=== PATIENT | female | born 1945 | race Caucasian/White ===

== ENCOUNTER → 2018-10-04 | Outpatient (CLI) | payer OTHER ==
--- NOTE | 2018-10-04 16:49 | Diagnostic Imaging Report ---
INDICATION: Chronic back pain. TIME OF EXAM: 01:58 p.m. FINDINGS: Left convexity lumbar scoliotic curvature is noted. There is normal lordotic curvature. Minimal anterolisthesis of L4 on L5 is noted. There is minimal retrolisthesis of L1 on L2. Vertebral body heights are maintained. No acute compression fracture is identified. Multilevel degenerative disc disease is noted with variable disc space narrowing and marginal spurring. This is greatest at the L1-L2 as well as L4-L5 levels. There is vacuum disc phenomenon at these levels. Multilevel facet arthropathy is noted. There is no spondylolysis. IMPRESSION: Lumbar spondylosis, as described. No acute bony abnormality is detected. Dictated by: Dictated on workstation # [id number]
--- NOTE | 2018-10-04 17:35 | Diagnostic Imaging Report ---
INDICATION: Chronic hip pain. TIME OF EXAM: 1:57 p.m. Two views of the left hip are obtained. FINDINGS: Joint space is well maintained. Femoroacetabular alignment is normal. Femoral head and neck are intact. No fractures are seen. Rami are intact. IMPRESSION: No acute bony abnormality is detected. Dictated by: Dictated on workstation # [id number]
== END ==
LOC: RAD FS 13:47
PROVIDERS: ATTEND Nurse Practitioner
DX: G89.29 Other chronic pain (principal); M25.552 Pain in left hip; M47.816 Spondylosis without myelopathy or radiculopathy, lumbar region
CPT/HCPCS: 72110; 73502

== ENCOUNTER → 2018-10-25 | Outpatient (CLI) | payer OTHER ==
--- NOTE | 2018-10-25 16:37 | Diagnostic Imaging Report ---
PROCEDURE: MRI lumbar spine. TECHNIQUE: Multiplanar, multisequence MRI of the lumbar spine was performed without contrast. INDICATION: Back pain and radiculopathy. FINDINGS: There is some left convexity degenerative lumbar rotoscoliosis. The vertebral body heights are well-maintained. There is no spondylolysis or spondylolisthesis. No fractures are identified. Conus medullaris is seen at L1 and is normal in appearance. The T12-L1 disc demonstrates some minimal annular bulging. There is mild facet disease at this level. There is however no significant neural or spinal stenosis. At L1-2, there is loss of disc height and signal intensity. There is broad-based annular bulging as well as some Modic changes in the endplates. There is facet disease and thickening of the ligamentum flavum. There is moderate spinal stenosis with moderate left and xdtn-es-zqjanmsa right neural foraminal encroachment. At L2-3, there is loss of disc height and signal intensity. There is annular bulging, facet disease and thickening of the ligamentum flavum. There is moderate spinal stenosis and moderate bilateral neural foraminal encroachment. At L3-4, there is loss of disc height and signal intensity. There is broad-based annular bulging, facet disease and thickening of the ligamentum flavum. There is moderate to severe spinal stenosis with encroachment upon the lateral recess bilaterally right greater than left. There is moderate bilateral neural foraminal encroachment. At L4-5, there is broad-based annular bulging, facet disease and thickening of the ligamentum flavum. There is moderately severe spinal stenosis with encroachment upon the lateral recess bilaterally, right greater than left. There is moderately severe right and mild to moderate left neural foraminal encroachment. At L5-S1, there is mild annular bulging and facet disease. There is mild spinal stenosis with pxtv-xe-lpgzcwpm bilateral neural foraminal encroachment. Abdominal aorta is nonaneurysmal. There is a right renal cyst. There are no other focal soft tissue abnormalities. IMPRESSION: Diffuse lumbar spondylosis and multilevel degenerative disc disease as detailed above. Dictated by: Dictated on workstation # [id number]
== END ==
LOC: RAD 15:29
PROVIDERS: ATTEND Nurse Practitioner
DX: M51.17 Intervertebral disc disorders with radiculopathy, lumbosacral region (principal); M47.25 Other spondylosis with radiculopathy, thoracolumbar region; M41.86 Other forms of scoliosis, lumbar region; M48.07 Spinal stenosis, lumbosacral region
CPT/HCPCS: 72148

== ENCOUNTER → 2019-11-08 | Outpatient (CLI) | payer OTHER ==
--- NOTE | 2019-11-08 10:33 | Diagnostic Imaging Report ---
PROCEDURE: MRI lumbar spine. TECHNIQUE: Multiplanar, multisequence MRI of the lumbar spine was performed without contrast. INDICATION: Back pain. COMPARISON: 10/25/2018. FINDINGS: There is moderately severe left convexity degenerative lumbar rotoscoliosis. The vertebral body heights are well-maintained. There is no spondylolysis or spondylolisthesis. No fractures are identified. The conus medullaris is seen at L1 and is normal in appearance. At T12-L1, there is no spinal or neuroforaminal encroachment. At L1-L2, there is loss of disc height and signal intensity. There are Modic changes in the endplates. There is facet disease and thickening of the ligamentum flavum. There is mild spinal stenosis. There is moderate left and wetz-gt-iretqjyd right neuroforaminal encroachment. At L2-L3, there is loss of disc height and signal intensity. There is facet disease and thickening of the ligamentum flavum. There are Modic changes in the endplates. There is moderate spinal stenosis with encroachment upon the lateral recess bilaterally. There is moderate bilateral neuroforaminal encroachment. At L3-L4, there is loss of disc height and signal intensity. There are Modic changes in the endplates. There is broad-based annular bulging, facet disease, and thickening of the ligamentum flavum. There is moderately severe spinal stenosis with encroachment upon the lateral recess bilaterally. There is moderately severe right and mild to moderate left neuroforaminal encroachment. At L4-L5, there is annular bulging facet disease and thickening of the ligamentum flavum. There is moderately severe spinal stenosis with encroachment upon the lateral recess bilaterally. There is moderately severe right and mild to moderate left neuroforaminal encroachment. At L5-S1, there is anular bulging and facet disease. There is slight effacement of the ventral thecal sac. There is encroachment on the lateral recess bilaterally, left greater than right. There is mild right and moderate to severe left neuroforaminal encroachment. The aorta is nonaneurysmal. There is a cyst in the right kidney. There are no other focal soft tissue abnormalities. IMPRESSION: Diffuse lumbar spondylosis and multilevel degenerative disc disease as detailed above. Dictated by: Dictated on workstation # [id number]
--- NOTE | 2019-11-08 10:34 | Diagnostic Imaging Report ---
INDICATION: Chronic back pain. Five views were obtained. FINDINGS: There is some left convexity degenerative lumbar rotoscoliosis. The vertebral body heights are well-maintained. There is multilevel degenerative disc disease. There is no obvious subluxation with flexion or extension. IMPRESSION: Diffuse lumbar spondylosis and multilevel degenerative disc disease as described. Dictated by: Dictated on workstation # [id number]
--- NOTE | 2019-11-08 10:37 | Diagnostic Imaging Report ---
INDICATION: Scoliosis. FINDINGS: There is marked S-type scoliosis. This measures approximately 37 degrees right convexity lower thoracic spine. There is compensatory left convexity lumbar scoliosis. Vertebral body heights appear to be well-maintained. There is diffuse spondylosis and multilevel degenerative disc disease. IMPRESSION: Severe S-type scoliosis as described. Dictated by: Dictated on workstation # [id number]
== END ==
LOC: RAD 09:17
PROVIDERS: ATTEND Student in an Organized Health Care Education/Training Program
DX: M47.26 Other spondylosis with radiculopathy, lumbar region (principal); M51.17 Intervertebral disc disorders with radiculopathy, lumbosacral region; N28.1 Cyst of kidney, acquired; M41.86 Other forms of scoliosis, lumbar region
CPT/HCPCS: 72082; 72110; 72148

== ENCOUNTER → 2021-01-14 | Outpatient (CLI) | payer OTHER ==
--- NOTE | 2021-01-14 13:43 | Diagnostic Imaging Report ---
INDICATION: SCOLIOSIS. TECHNIQUE: AP views thoracic and lumbar spine, 11:38 AM. CORRELATION STUDY: 11/08/2019 FINDINGS: Rather significant thoracolumbar sclerotic curvature is present. There is approximately 43 degrees of rightward curvature of the thoracic spine with 32 degrees of leftward curvature lower lumbar spine. There is also additional slight lateral subluxation of L4 in regards to L5. Marked asymmetric disc space narrowing along the right aspect of the concavity of the lumbar spine curvature most pronounced L2-L3, L3-L4, L4-L5 levels. Reactive endplate sclerosis and osteophyte formation. Additional mild asymmetric osteophyte formation along the cavity of the right thoracic scoliotic curvature as well most pronounced at T9 and T10 level.` IMPRESSION: 1. Rather significant thoracolumbar scoliotic curve with associated degenerative changes at the thoracic and lumbar spine. Dictated by: Dictated on workstation # [id number]
== END ==
LOC: RAD 11:10
DX: M47.814 Spondylosis without myelopathy or radiculopathy, thoracic region (principal); M47.816 Spondylosis without myelopathy or radiculopathy, lumbar region; M41.85 Other forms of scoliosis, thoracolumbar region
CPT/HCPCS: 72081

== ENCOUNTER → 2021-05-09 | Outpatient (CLI) | payer OTHER ==
--- NOTE | 2021-05-09 10:46 | Diagnostic Imaging Report ---
INDICATION: KNEE PAIN RIGHT COMPARISON: None. FINDINGS: 3 views of the right knee joint demonstrate no acute fracture or dislocation. No focal osseous lesions are seen. Small suprapatellar joint effusion is noted. The surrounding soft tissue structures are unremarkable. There are no radiopaque foreign bodies. IMPRESSION: 1. Small suprapatellar joint effusion, but no radiographic evidence of acute fracture or dislocation. Dictated by: Dictated on workstation # [id number]
== END ==
LOC: RAD FS 10:28
PROVIDERS: ATTEND Nurse Practitioner
DX: M25.461 Effusion, right knee (principal); M25.561 Pain in right knee
CPT/HCPCS: 73562

== ENCOUNTER → 2022-02-04 | Outpatient (CLI) | payer OTHER ==
--- NOTE | 2022-02-04 13:40 | Diagnostic Imaging Report ---
INDICATION: Knee pain, arthritis. COMPARISON: 05/09/2021. TECHNIQUE: Three radiographs of the right knee dated 02/04/2022. FINDINGS: No acute fracture or dislocation. No destructive osseous process. Moderate medial joint space narrowing with mild osteophytosis. The lateral compartment is well maintained. Tiny knee joint effusion. No suspicious radiopaque foreign body. IMPRESSION: No acute osseous abnormality with mild to moderate degenerative changes and a tiny knee joint effusion present. Dictated by: Dictated on workstation # [id number]
== END ==
LOC: RAD FS 09:00
PROVIDERS: ATTEND Nurse Practitioner
DX: M17.11 Unilateral primary osteoarthritis, right knee (principal)
CPT/HCPCS: 73562

== ENCOUNTER 2022-10-02 13:18 | Emergency (ER) | payer OTHER ==
[~2022-10-02] VITALS: Ht 165.5 cm; Wt 70.0 kg
[2022-10-02 13:25] VITALS: BP 177/98
[2022-10-02] MEDS ORDERED: fentaNYL INJ 100 MCG/2 ML AMP IVP STA (13:36)
--- NOTE | 2022-10-02 13:39 | ED Back Pain ---
General Stated Complaint: LOWER BACK PAIN Source of Information: Patient Exam Limitations: No Limitations History of Present Illness Date Seen by Provider: Oct 02, 2022 Time Seen by Provider: 13:36 Initial Comments Patient is a 76-year-old female history of diverticulitis with perforation requiring bowel resection who presents ED with left flank pain. Symptoms started 2 weeks ago. Described as sharp and intermittent. She states it feels like the pain is there all the time but she gets increasing pain. This appears to be worse with certain movements especially when she is laying down or getting up. She states she was seen at [address] [place] [address] [facility] walk[facility]in clinic about a week and a half ago had x-rays of her lower spine and there was concern for pain secondary to scoliosis. She has a scheduled follow-up with pain clinic October 13. She has been taken tramadol without much improvement. She states she has been constipated secondary to tramadol. Has mixed and Advil without much improv ement. Pain does radiate to the abdomen. Denies of any pain with urination frequent urination or hematuria. Denies of any specific falls. Denies history of similar type pain in the past. She denies chest pain, shortness of breath, nausea, vomiting, diarrhea fever, chills. Allergies and Home Medications Allergies Coded Allergies: amoxicillin (Verified Allergy, Unknown, 10/02/22) Patient Home Medication List Home Medication List Reviewed: Yes Hydrocodone/Acetaminophen (Hydrocodone-Acetamin 5-325 mg) 5 Mg-325 Mg Tablet, 1 TAB PO Q4H PRN for PAIN-MODERATE (5-7) Prescribed by: DAVID BROWNE on 10/02/22 [id number] Review of Systems Constitutional: No chills, No diaphoresis, No malaise, No weakness EENTM: No ear pain, No blurred vision Respiratory: No cough, No dyspnea on exertion Cardiovascular: No chest pain Gastrointestinal: No abdominal pain, No diarrhea, No nausea, No vomiting Genitourinary: No decreased output, No dysuria, No frequency Musculoskeletal: back pain; No joint pain Skin: No change in color, No change in hair/nails All Other Systems Reviewed Negative Unless Noted: Yes Physical Exam Vital Signs Vital Signs - First Documented 10/02/22 13:25 Temp 36.6 Pulse 69 Resp 16 B/P (MAP) 177/98 (124) Pulse Ox 98 O2 Delivery Room Air Capillary Refill : Height, Weight, BMI Height: '" Weight: lbs. oz. kg; BMI Method: General Appearance: No Apparent Distress, WD/WN HEENT: PERRL/EOMI, TMs Normal, Normal ENT Inspection, Pharynx Normal Neck: Full Range of Motion, Normal Inspection, Non Tender, Supple Cardiovascular: Regular Rate, Rhythm, No Edema, No Gallop, No JVD, No Murmur Respiratory: Chest Non Tender, Lungs Clear, Normal Breath Sounds, No Accessory Muscle Use, No Respiratory Distress Gastrointestinal: Normal Bowel Sounds, No Organomegaly, No Pulsatile Mass, Non Tender, Soft Back: No Vertebral Tenderness, CVA Tenderness (L) Neurologic/Psychiatric: Alert, Oriented x3, No Motor/Sensory Deficits, Normal Mood/Affect, 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 Norm as Tested Skin: Normal Color, Warm/Dry Progress/Results/Core Measures Results/Orders Lab Results Laboratory Tests Test 10/02/22 13:40 10/02/22 14:02 Range/Units White Blood Count 9.0 4.3-11.0 10^3/uL Red Blood Count 4.74 3.80-5.11 10^6/uL Hemoglobin 11.4 L 11.5-16.0 g/dL Hematocrit 35 35-52 % Mean Corpuscular Volume 74 L 80-99 fL Mean Corpuscular Hemoglobin 24 L 25-34 pg Mean Corpuscular Hemoglobin Concent 33 32-36 g/dL Red Cell Distribution Width 17.6 H 10.0-14.5 % Platelet Count 333 130-400 10^3/uL Mean Platelet Volume 10.0 9.0-12.2 fL Immature Granulocyte % (Auto) 0 % Neutrophils (%) (Auto) 63 42-75 % Lymphocytes (%) (Auto) 23 12-44 % Monocytes (%) (Auto) 11 0-12 % Eosinophils (%) (Auto) 2 0-10 % Basophils (%) (Auto) 1 0-10 % Neutrophils # (Auto) 5.7 1.8-7.8 10^3/uL Lymphocytes # (Auto) 2.1 1.0-4.0 10^3/uL Monocytes # (Auto) 1.0 0.0-1.0 10^3/uL Eosinophils # (Auto) 0.2 0.0-0.3 10^3/uL Basophils # (Auto) 0.1 0.0-0.1 10^3/uL Immature Granulocyte # (Auto) 0.0 0.0-0.1 10^3/uL Sodium Level 134 L 135-145 MMOL/L Potassium Level 3.9 3.6-5.0 MMOL/L Chloride Level 99 98-107 MMOL/L Carbon Dioxide Level 22 21-32 MMOL/L Anion Gap 13 5-14 MMOL/L Blood Urea Nitrogen 15 7-18 MG/DL Creatinine 0.94 0.60-1.30 MG/DL Estimat Glomerular Filtration Rate 64 BUN/Creatinine Ratio 16 Glucose Level 101 70-105 MG/DL Calcium Level 9.5 8.5-10.1 MG/DL Corrected Calcium 9.3 8.5-10.1 MG/DL Total Bilirubin 0.3 0.1-1.0 MG/DL Aspartate Amino Transf (AST/SGOT) 24 5-34 U/L Alanine Aminotransferase (ALT/SGPT) 16 0-55 U/L Alkaline Phosphatase 94 40-136 U/L Total Protein 7.0 6.4-8.2 GM/DL Albumin 4.2 3.2-4.5 GM/DL Lipase 28 8-78 U/L Urine Color YELLOW Urine Clarity CLEAR Urine pH 7.0 5-9 Urine Specific [facility] 1.010 L 1.016-1.022 Urine Protein NEGATIVE NEGATIVE Urine Glucose (UA) NEGATIVE NEGATIVE Urine Ketones NEGATIVE NEGATIVE Urine Nitrite NEGATIVE NEGATIVE Urine Bilirubin NEGATIVE NEGATIVE Urine Urobilinogen 0.2 < = 1.0 MG/DL Urine Leukocyte Esterase NEGATIVE NEGATIVE Urine RBC (Auto) TRACE-L H NEGATIVE Urine RBC RARE /HPF Urine WBC NONE /HPF Urine Squamous Epithelial Cells 2-5 /HPF Urine Crystals NONE /LPF Urine Bacteria FEW H /HPF Urine Casts NONE /LPF Urine Mucus NEGATIVE /LPF Urine Culture Indicated NO My Orders Orders - SHONNA PINEDA Ua Culture If Indicated (10/02/22 13:23) Cbc With Automated Diff (10/02/22 13:33) Comprehensive Metabolic Panel (10/02/22 13:33) Lipase (10/02/22 13:33) Ct Abd/Pelvis Wo(Kidney Stone) (10/02/22 13:33) Ct Lumbar Spine Wo (10/02/22 13:33) Fentanyl Inj (Sublimaze Injection) (10/02/22 13:36) Orphenadrine Inj (Ed Only) (Norflex Inje (10/02/22 13:45) Medications Given in ED Current Medications Medications Dose Ordered Sig/Arie Route Start Time Stop Time Status Last Admin Dose Admin Orphenadrine Citrate 60 mg ONCE ONCE IM 10/02/22 13:45 10/02/22 13:46 DC 10/02/22 14:12 60 MG Vital Signs/I&O 10/02/22 13:25 Temp 36.6 Pulse 69 Resp 16 B/P (MAP) 177/98 (124) Pulse Ox 98 O2 Delivery Room Air Departure Communication (PCP) Reviewed previous ER visits, H&P, lab testing. Differential diagnosis, nephrolithiasis, lithiasis, lumbosacral strain, radiculopathy, bulging disc . patient is a 76-year-old female who presents to the ED for left-sided back pain. Back pain over the past 2 weeks. States she was seen at [facility] and had x-rays of her lower spine concerning for her scoliosis as result of the pain. She has a scheduled appointment with a pain specialist on October 13. She called there office today and was recommended to come to ED to rule out other potential etiology of this pain. Pain radiates to the left side abdomen. Denies of any pain in her groin, bowel or urine incontinence or saddle paresthesia, lower extremity weakness or sensory changes. Increasing pain with any type of movement. She is holding her left flank and she has no lumbar midline tenderness. CBC, CMP, urinalysis, CT abdomen pelvis was ordered. Urinalysis did show small hematuria without evidence infection. CBC, CMP grossl y unremarkable. Did receive 50 of fentanyl and Norflex 60mg with improvement of the pain. Patient appears much more comfortable at this time. CT abdomen pelvis did note constipation but was negative for obstruction, nephrolithiasis, urolithiasis. Chronic findings were noted. CT lumbar spine did note severe multilevel lumbar spine degenerative disease with levoscoliosis of the lumbar spine. Concern This is likely the source of patient's pain. Would likely benefit with further evaluation with pain specialist and neurosurgery. Due to having no neurological red flag findings no further imaging was ordered at this time. Will discharge with a few days worth of stronger pain medication ([place]) as needed. She states she did use a prednisone taper and muscle relaxer few weeks ago which did not improve any of her pain. She does not request to proceed with a muscle relaxer or Medrol Dosepak. Recommend lidocaine patches over the left lumbar paraspinal muscle. Recommend stretching, heat. We will provide hydrocodone as needed however she needs to take a laxative with this pain medication which could be result of some the abdominal pain in the constipation. Recommend MiraLAX. If no bowel movement may consider magnesium citrate over 24-hour period. If no improvement recommend Fleet enema. If any worsening symptoms such as bowel or urine incontinence, saddle paresthesia, lower extremity weakness to return back to ED. Impression Primary Impression: Back pain Disposition: HOME, SELF-CARE Condition: Stable Departure-Patient Inst. Decision time for Depature: 15:06 Referrals: MILLER BOLIVAR APRN (PCP) Primary Care Physician [facility] (Family) Primary Care Physician Patient Instructions: Low Back Pain (DC) Add. Discharge Instructions: Recommend drinking a bottle of magnesium citrate. If no bowel movement after 24 hours may consider a Fleet enema. Continue with MiraLAX with the hydrocodone. Recommend staying hydrated. Follow-up with your specialists. Recommend taking anti-inflammatory such as naproxen or ibuprofen as well however do not take a large amount and take with food Scripts Hydrocodone/Acetaminophen (Hydrocodone-Acetamin 5-325 mg) 5 Mg-325 Mg Tablet 1 TAB PO Q4H PRN for PAIN-MODERATE (5-7), #12 TAB Prov: SHONNA PINEDA 10/02/22 SHONNA PINEDA Oct 02, 2022 13:39
[2022-10-02] MEDS ORDERED: ORPHENADRINE 60 MG/2 ML (NORFLEX) AMP (ED ONLY) IM ONE (13:45)
[2022-10-02 13:48] LABS: BASOPHILS # (AUTO) 0.1 10^3/uL (0.0-0.1); BASOPHILS % (AUTO) 1 % (0-10); EOSINOPHILS # (AUTO) 0.2 10^3/uL (0.0-0.3); EOSINOPHILS % (AUTO) 2 % (0-10); HEMATOCRIT 35 % (35-52); HEMOGLOBIN 11.4 g/dL (11.5-16.0); LYMPHOCYTES # (AUTO) 2.1 10^3/uL (1.0-4.0); LYMPHOCYTES % (AUTO) 23 % (12-44); MEAN CORPUSCULAR HEMOGLOBIN 24 pg (25-34); MEAN CORPUSCULAR HGB CONC 33 g/dL (32-36); MEAN CORPUSCULAR VOLUME 74 fL (80-99); MONOCYTES % (AUTO) 11 % (0-12); NEUTROPHILS # (AUTO) 5.7 10^3/uL (1.8-7.8); NEUTROPHILS % (AUTO) 63 % (42-75); PLATELET COUNT 333 10^3/uL (130-400)
[2022-10-02 13:59] LABS: ALBUMIN 4.2 GM/DL (3.2-4.5); POTASSIUM 3.9 MMOL/L (3.6-5.0)
[2022-10-02 14:00] LABS: CALCIUM 9.5 MG/DL (8.5-10.1)
[2022-10-02 14:03] LABS: BILIRUBIN,TOTAL 0.3 MG/DL (0.1-1.0)
[2022-10-02 14:05] LABS: CREATININE SERUM 0.94 MG/DL (0.60-1.30)
[2022-10-02 14:20] LABS: BILIRUBIN,URINE NEGATIVE (NEGATIVE); CLARITY,URINE CLEAR; COLOR,URINE YELLOW; GLUCOSE, URINE (UA) NEGATIVE (NEGATIVE); KETONES,URINE NEGATIVE (NEGATIVE); LEUKOCYTE ESTERASE ,URINE NEGATIVE (NEGATIVE); NITRITE,URINE NEGATIVE (NEGATIVE); PROTEIN,URINE NEGATIVE (NEGATIVE)
--- NOTE | 2022-10-02 14:22 | Diagnostic Imaging Report ---
PROCEDURE: CT urinary tract, rule out kidney stone. TECHNIQUE: Multiple contiguous axial images were obtained through the abdomen and pelvis without the use of intravenous contrast. Auto Exposure Controls were utilized during the CT exam to meet ALARA standards for radiation dose reduction. INDICATION: Left flank pain. COMPARISON: No priors. FINDINGS: There is a lower pole right renal cortical cyst. There are no radiodense kidney stones. There is no hydroureteronephrosis. No ureteral or bladder calculus. Extra-ureteral pelvic phleboliths are noted incidentally. No perinephric or periureteric edema. There is a normal appendix. There is mild elevation of the colonic fecal load as well as some mild fecalization of the distal small bowel. No substantial bowel dilatation, focal impaction, or tracie obstruction. No air-fluid levels. 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 No abscess, hematoma, or acute fluid collection. The liver, gallbladder, bile ducts, spleen, adrenals, and pancreas are unremarkable. No pneumatosis. No free gas. The aortoiliac atherosclerotic vascular calcifications are nonaneurysmal. IMPRESSION: 1. No hydronephrosis. No radiodense urinary tract stone. There is a right renal cortical cyst. 2. Colonic constipation without focal impaction or obstruction. 3. Prior surgery without complication. No fluid collection. Normal appendix. No diverticulitis. Dictated by: Dictated on workstation # [id number]
[2022-10-02 14:33] LABS: BACTERIA,URINE FEW /HPF; RBC,URINE RARE /HPF
--- NOTE | 2022-10-02 14:46 | Diagnostic Imaging Report ---
CLINICAL INDICATION: Patient with left flank progressively getting worse x2 days. Patient with history of intestine resection and hysterectomy. EXAM: Axial CT scan of the lumbar spine performed without IV contrast. Sagittal and coronal reformatted images. Auto Exposure Controls were utilized during the CT exam to meet ALARA standards for radiation dose reduction. COMPARISON: MRI of the lumbar spine without contrast dated 11/08/2019. FINDINGS: There is no acute lumbar spine fracture. There is levoscoliosis of the lumbar spine. There is grossly 8 mm of left lateral subluxation of the L4 vertebra in relation to the L5 vertebra. There are hypertrophic spurs seen throughout the lumbar spine and facet arthropathy. Right renal cyst is again noted which measures at least 2.6 cm in greatest axial dimensions. L1-L2: There is diffuse disk bulge and moderate bilateral facet arthropathy. There is at least moderate central canal narrowing which has not majorly changed. There is ltvqghxz-xy-ktrtek right neural foramen narrowing and no significant left neural foramen narrowing. There is severe loss of disk space height. L2-L3: There is diffuse disk bulge again seen. There is moderate bilateral facet arthropathy. There is at least moderate central canal stenosis which was also noted on the prior study. There is no significant neural foramen narrowing. There is severe loss of disk space height. L3-L4: There is moderate bilateral facet arthropathy. There is severe central canal stenosis again seen. There is moderate right neural foramen narrowing and mild left neural foramen narrowing which has not significantly changed. There is severe loss of disk space height. L4-L5: There is stable grade 1 anterolisthesis of L4 on L5. There is severe bilateral facet arthropathy/hypertrophy. There is at least moderate central canal stenosis. There is severe right neural foramen narrowing and mild left neural foramen narrowing. There is severe loss of disk space height. L5-S1: There is stable subtle grade 1 retrolisthesis of L5 on S1. There is diffuse disk bulge with severe loss of disk space height. There is qtxa-oc-amtyjlzq right neural foramen narrowing and severe left neural foramen narrowing. There is no significant central canal narrowing. IMPRESSION: 1: There is no acute lumbar spine fracture or dislocation. 2: There is severe multilevel lumbar spine degenerative disease with levoscoliosis of the lumbar spine. The degenerative disease has not majorly changed in the interim. Dictated by: Dictated on workstation # [id number]
[2022-10-02] MEDS ORDERED: ACHD5005 PO (15:07)
== END 2022-10-02 15:25 | disposition home or self-care (01) ==
LOC: EDUNIT# 13:18 → ER 13:19
DX: M54.50 Low back pain, unspecified (principal); K59.00 Constipation, unspecified; R31.9 Hematuria, unspecified
CPT/HCPCS: 36415; 72131; 74176; 80053; 81000; 83690; 85025